=== PATIENT | female | born 1945 | race Caucasian/White ===

== ENCOUNTER 2019-08-20 12:52 | Inpatient (IN) | payer MEDICARE, MEDICAID ==
[2019-08-20] MEDS ORDERED: Sodium Chloride 0.9% 10 ML Syringe FLUSH PRN (13:25)
[2019-08-20] MEDS ORDERED: methylPREDNISolone Sodium Succinate 125 MG/2 ML SDV IV ONE (13:39)
[2019-08-20] MEDS ORDERED: Dextrose 5%-0.45% NaCl 1,000 ML IV SCH (13:45)
[2019-08-20] MEDS ORDERED: Azithromycin 250 MG Tab PO ONE (13:48)
[2019-08-20 15:06] LABS: ANION GAP 13.8 mmol/L (5-15)
[2019-08-20] MEDS: Sodium Chloride 0.9% 1,000 ML IV SCH (15:42)
[2019-08-20] MEDS: cefTRIAXone 1 GM Vial IVPUSH SCH (15:45)
[2019-08-20] MEDS: Albuterol/Ipratropium 3.0-0.5 MG/3 ML Neb Soln NEB SCH ×2 (17:18→22:32)
[2019-08-20] MEDS: Insulin Aspart 100 Units/ML 3 ML Pen SUBCUT SCH ×2 (17:50→21:17)
[2019-08-20] MEDS ORDERED: Metoprolol Tartrate 50 MG Tab PO ONE (21:56)
[2019-08-20] MEDS ORDERED: Insulin Glargine,Human Rec. Analog 100 Units/ML 3 ML Pen SUBCUT ONE (22:00)
[2019-08-20] MEDS ORDERED: Clopidogrel 75 MG Tab PO ONE (22:00)
[2019-08-20] MEDS ORDERED: hydrALAZINE 10 MG Tab PO ONE (22:00)
[2019-08-21] MEDS: Sodium Chloride 0.9% 1,000 ML IV SCH (04:52)
[2019-08-21] MEDS: Albuterol/Ipratropium 3.0-0.5 MG/3 ML Neb Soln NEB SCH ×4 (04:55→22:42)
[2019-08-21] MEDS: Insulin Aspart 100 Units/ML 3 ML Pen SUBCUT SCH ×4 (08:11→21:29)
[2019-08-21 08:20] LABS: ANION GAP 18.7 mmol/L (5-15)
[2019-08-21] MEDS: Azithromycin 250 MG Tab PO SCH (09:28)
[2019-08-21] MEDS ORDERED: Acetaminophen 325 MG Tab PO PRN (11:33)
--- NOTE | 2019-08-21 11:41 | PCM.PN ---
- General Info Date of Service: 08/21/19 Functional Status: Reports: Pain Controlled, Tolerating Diet, Urinating, New Symptoms (Left ear pain/plugging), Incentive Spirometry. Denies: Ambulating - Review of Systems General: Reports: Chills (Sweats chills middle the night), Night Sweats. Denies : Fever, Weakness, Fatigue, Malaise HEENT: Reports: Ear Pain, Sore Throat. Denies: Sinus Congestion Pulmonary: Reports: Cough. Denies: Shortness of Breath, Sputum (Thick mucus cannot seem to bring it up) Cardiovascular: Reports: Dyspnea on Exertion. Denies: Chest Pain, Palpitations , Orthopnea, PND, Edema, Lightheadedness Gastrointestinal: Reports: No Symptoms Genitourinary: Reports: No Symptoms Musculoskeletal: Reports: No Symptoms Skin: Reports: No Symptoms Neurological: Denies: Confusion Psychiatric: Reports: No Symptoms - Patient Data Vitals - Most Recent: Last Vital Signs Temp 97.3 F 08/21/19 06:42 Pulse 70 08/21/19 06:42 Resp 20 08/21/19 06:42 BP 139/57 L 08/21/19 06:42 Pulse Ox 94 L 08/21/19 06:42 Weight - Most Recent: 218 lb 8 oz I&O - Last 24 Hours: Intake & Output 08/20/19 08/21/19 08/21/19 22:59 06:59 14:59 Intake Total 1310 645 Output Total 0 Balance 1310 645 Lab Results Last 24 Hours: Laboratory Results - last 24 hr 08/20/19 08/20/19 08/20/19 Range/Units 05:40 14:40 14:40 WBC (5.00-10.00) 10^3/uL RBC (3.80-5.50) 10^6/uL Hgb (12.0-16.0) g/dL Hct (37.0-47.0) % MCV (82.0-92.0) fL MCH (27.0-31.0) pg MCHC (32.0-36.0) g/dL RDW (11.5-14.5) % Plt Count (150-400) 10^3/uL MPV (7.4-10.4) fL Immature Gran % (Auto) (0.0-5.0) % Neut % (Auto) (50.0-70.0) % Lymph % (Auto) (20.0-40.0) % Boone % (Auto) (2.0-8.0) % Eos % (Auto) (1.0-3.0) % Baso % (Auto) (0.0-1.0) % Immature Gran # (Auto) (0.00-0.50) 10^3/uL Neut # (Auto) (2.50-7.00) 10^3/uL Lymph # (Auto) (1.00-4.00) 10^3/uL Boone # (Auto) (0.10-0.80) 10^3/uL Eos # (Auto) (0.10-0.30) 10^3/uL Baso # (Auto) (0.00-0.10) 10^3/uL Sodium 136 (136-145) mmol/L Potassium 3.7 (3.3-5.3) mmol/L Chloride 101 (98-115) mmol/L Carbon Dioxide 24.9 (21.0-32.0) mmol/L Anion Gap 13.8 (5-15) mmol/L BUN 32 H (6-25) mg/dL Creatinine 1.76 H (0.51-1.17) mg/dL Est Cr Clr Drug Dosing 21.84 mL/min Estimated GFR (MDRD) 28 mL/min Glucose 107 H (75 - 99) mg/dL POC Glucose (74-106) mg/dl Lactic Acid 1.3 2.1 H (0.4-2.0) mmol/L Calcium 8.9 (8.7-10.3) mg/dL Total Bilirubin 1.6 H (0.2-1.0) mg/dL AST 16 (15-37) U/L ALT 16 (12-78) U/L Alkaline Phosphatase 67 (46-116) IU/L Total Protein 7.4 (6.4-8.2) g/dL Albumin 3.70 (3.00-4.80) g/dL 08/20/19 08/20/19 08/20/19 Range/Units 14:42 17:53 20:58 WBC (5.00-10.00) 10^3/uL RBC (3.80-5.50) 10^6/uL Hgb (12.0-16.0) g/dL Hct (37.0-47.0) % MCV (82.0-92.0) fL MCH (27.0-31.0) pg MCHC (32.0-36.0) g/dL RDW (11.5-14.5) % Plt Count (150-400) 10^3/uL MPV (7.4-10.4) fL Immature Gran % (Auto) (0.0-5.0) % Neut % (Auto) (50.0-70.0) % Lymph % (Auto) (20.0-40.0) % Boone % (Auto) (2.0-8.0) % Eos % (Auto) (1.0-3.0) % Baso % (Auto) (0.0-1.0) % Immature Gran # (Auto) (0.00-0.50) 10^3/uL Neut # (Auto) (2.50-7.00) 10^3/uL Lymph # (Auto) (1.00-4.00) 10^3/uL Boone # (Auto) (0.10-0.80) 10^3/uL Eos # (Auto) (0.10-0.30) 10^3/uL Baso # (Auto) (0.00-0.10) 10^3/uL Sodium (136-145) mmol/L Potassium (3.3-5.3) mmol/L Chloride (98-115) mmol/L Carbon Dioxide (21.0-32.0) mmol/L Anion Gap (5-15) mmol/L BUN (6-25) mg/dL Creatinine (0.51-1.17) mg/dL Est Cr Clr Drug Dosing mL/min Estimated GFR (MDRD) mL/min Glucose (75 - 99) mg/dL POC Glucose 94 250 H 374 H (74-106) mg/dl Lactic Acid (0.4-2.0) mmol/L Calcium (8.7-10.3) mg/dL Total Bilirubin (0.2-1.0) mg/dL AST (15-37) U/L ALT (12-78) U/L Alkaline Phosphatase (46-116) IU/L Total Protein (6.4-8.2) g/dL Albumin (3.00-4.80) g/dL 08/21/19 08/21/19 08/21/19 Range/Units 06:26 07:10 07:10 WBC 7.17 (5.00-10.00) 10^3/uL RBC 3.22 L (3.80-5.50) 10^6/uL Hgb 10.5 L (12.0-16.0) g/dL Hct 31.4 L (37.0-47.0) % MCV 97.5 H (82.0-92.0) fL MCH 32.6 H (27.0-31.0) pg MCHC 33.4 (32.0-36.0) g/dL RDW 12.9 (11.5-14.5) % Plt Count 155 (150-400) 10^3/uL MPV 10.0 (7.4-10.4) fL Immature Gran % (Auto) 0.6 (0.0-5.0) % Neut % (Auto) 88.0 H (50.0-70.0) % Lymph % (Auto) 7.0 L (20.0-40.0) % Boone % (Auto) 4.3 (2.0-8.0) % Eos % (Auto) 0.0 L (1.0-3.0) % Baso % (Auto) 0.1 (0.0-1.0) % Immature Gran # (Auto) 0.04 (0.00-0.50) 10^3/uL Neut # (Auto) 6.31 (2.50-7.00) 10^3/uL Lymph # (Auto) 0.50 L (1.00-4.00) 10^3/uL Boone # (Auto) 0.31 (0.10-0.80) 10^3/uL Eos # (Auto) 0.00 L (0.10-0.30) 10^3/uL Baso # (Auto) 0.01 (0.00-0.10) 10^3/uL Sodium 140 (136-145) mmol/L Potassium 4.2 (3.3-5.3) mmol/L Chloride 102 (98-115) mmol/L Carbon Dioxide 23.5 (21.0-32.0) mmol/L Anion Gap 18.7 H (5-15) mmol/L BUN 42 H (6-25) mg/dL Creatinine 1.94 H (0.51-1.17) mg/dL Est Cr Clr Drug Dosing 19.82 mL/min Estimated GFR (MDRD) 25 mL/min Glucose 299 H (75 - 99) mg/dL POC Glucose 292 H (74-106) mg/dl Lactic Acid (0.4-2.0) mmol/L Calcium 7.7 L (8.7-10.3) mg/dL Total Bilirubin (0.2-1.0) mg/dL AST (15-37) U/L ALT (12-78) U/L Alkaline Phosphatase (46-116) IU/L Total Protein (6.4-8.2) g/dL Albumin (3.00-4.80) g/dL 08/21/19 Range/Units 07:10 WBC (5.00-10.00) 10^3/uL RBC (3.80-5.50) 10^6/uL Hgb (12.0-16.0) g/dL Hct (37.0-47.0) % MCV (82.0-92.0) fL MCH (27.0-31.0) pg MCHC (32.0-36.0) g/dL RDW (11.5-14.5) % Plt Count (150-400) 10^3/uL MPV (7.4-10.4) fL Immature Gran % (Auto) (0.0-5.0) % Neut % (Auto) (50.0-70.0) % Lymph % (Auto) (20.0-40.0) % Boone % (Auto) (2.0-8.0) % Eos % (Auto) (1.0-3.0) % Baso % (Auto) (0.0-1.0) % Immature Gran # (Auto) (0.00-0.50) 10^3/uL Neut # (Auto) (2.50-7.00) 10^3/uL Lymph # (Auto) (1.00-4.00) 10^3/uL Boone # (Auto) (0.10-0.80) 10^3/uL Eos # (Auto) (0.10-0.30) 10^3/uL Baso # (Auto) (0.00-0.10) 10^3/uL Sodium (136-145) mmol/L Potassium (3.3-5.3) mmol/L Chloride (98-115) mmol/L Carbon Dioxide (21.0-32.0) mmol/L Anion Gap (5-15) mmol/L BUN (6-25) mg/dL Creatinine (0.51-1.17) mg/dL Est Cr Clr Drug Dosing mL/min Estimated GFR (MDRD) mL/min Glucose (75 - 99) mg/dL POC Glucose (74-106) mg/dl Lactic Acid 1.1 (0.4-2.0) mmol/L Calcium (8.7-10.3) mg/dL Total Bilirubin (0.2-1.0) mg/dL AST (15-37) U/L ALT (12-78) U/L Alkaline Phosphatase (46-116) IU/L Total Protein (6.4-8.2) g/dL Albumin (3.00-4.80) g/dL Tito Results Last 24 Hours: Microbiology 08/20/19 14:20 Anaerobic Blood Culture - Final Blood - Venous Med Orders - Current: Current Medications Albuterol/Ipratropium (Duoneb 3.0-0.5 Mg/3 Ml) 3 ml NEB Q6HRRT [facility] Last Admin: 08/21/19 04:55 Dose: 3 ml Azithromycin (Zithromax) 250 mg PO DAILY [facility] Stop: 08/24/19 21:00 Last Admin: 08/21/19 09:28 Dose: 250 mg Ceftriaxone Sodium (Rocephin) 1 gm IVPUSH Q24H [facility] Last Admin: 08/20/19 15:45 Dose: 1 gm Sodium Chloride (Normal Saline) 1,000 mls @ 75 mls/hr IV ASDIRECTED [facility] Last Admin: 08/21/19 04:52 Dose: 75 mls/hr Insulin Aspart (Novolog) 0 unit SUBCUT WITHMEALSANDBED [facility]; Protocol Last Admin: 08/21/19 08:11 Dose: 6 units Sodium Chloride (Saline Flush) 10 ml FLUSH Q8HR PRN PRN Reason: keep vein open Discontinued Medications Azithromycin (Zithromax) 500 mg PO ONETIME ONE Stop: 08/20/19 13:49 Last Admin: 08/20/19 15:50 Dose: 500 mg Clopidogrel Bisulfate (Plavix) 75 mg PO ONETIME ONE Stop: 08/20/19 22:01 Last Admin: 08/20/19 22:29 Dose: 75 mg Hydralazine HCl (Apresoline) 10 mg PO ONETIME ONE Stop: 08/20/19 22:01 Last Admin: 08/20/19 22:29 Dose: 10 mg Dextrose/Sodium Chloride (Dextrose 5%-1/2 Ns) 1,000 mls @ 75 mls/hr IV ASDIRECTED GUILLERMINA Insulin Glargine (Lantus Solostar) 15 units SUBCUT ONETIME ONE Stop: 08/20/19 22:01 Last Admin: 08/20/19 22:30 Dose: 15 units Methylprednisolone Sodium Succinate (Solu-Medrol) 40 mg IV ONETIME ONE Stop: 08/20/19 13:40 Last Admin: 08/20/19 15:47 Dose: 40 mg Metoprolol Tartrate (Lopressor) 50 mg PO ONETIME ONE Stop: 08/20/19 21:57 Last Admin: 08/20/19 22:29 Dose: 50 mg - Exam Quality Assessment: Supplemental Oxygen General: Alert, Oriented, Cooperative, No Acute Distress Lungs: Clear to Auscultation, Normal Respiratory Effort, Other Cardiovascular: Regular Rate, Regular Rhythm GI/Abdominal Exam: Normal Bowel Sounds, Soft (Female) Exam: Deferred Extremities: No Pedal Edema Skin: Dry Psy/Mental Status: Alert, Normal Affect, Normal Mood Sepsis Event Note - Evaluation Sepsis Screening Result: No Definite Risk - Focused Exam Vital Signs: Vital Signs Temp Pulse Resp BP Pulse Ox Pulse Ox 08/21/19 06:42 97.3 F 70 20 139/57 L 94 L 08/21/19 05:09 72 96 08/21/19 03:00 96.9 F 68 20 136/60 94 L Date Exam was Performed: 08/21/19 Time Exam was Performed: 11:15 - Problem List Review Problem List Initiated/Reviewed/Updated: Yes - Plan Plan:: History Summary 73-year-old pleasant female was admitted by [facility] due to right lower lobe pneumonia. [facility] stating she just did not feel right if she was quite sick at home with fevers approximately the past 2 days along with productive cough shortness of breath with limited activity. Patient states that she has been having shortness of breath more on exertion over the past few years that she contributes to her smoking history. Patient provider said patient had significant wheezing and shortness of breath while in clinic Pertinent prehospital work-up Temperature 100.8 SPO2 95% WBC, 11.3 Neutrophils 84% Negative influenza A/B CxR flattened diaphragms opacity right lung base Primary hospital problems --Pneumonia, RLL, CAP, likely bacterial --T2DM, hyperglycemia 2/2 glucocorticoid steroids, most recent A1c tightly controlled at 5.7%., Insulin home regimen, aspart 10 units every morning 12 units 12 and 1800, Tresiba 50 units bedtime. We will make adjustments to cover her steroid-induced hyperglycemia Chronic/stable problems Hypertension, no adjustment in home meds Hyperlipidemia CKD, stage III, above baseline of 1.4-1.6 History of CVA Obesity, morbid, comorbid Gout, active flareup Osteoarthritis, Disposition/overall plan Patient meets criteria for inpatient stay Continue with p.o. macrolide along with ceftriaxone Irrigate left ear Procalcitonin Saline lock IV fluids Encourage p.o. intake A1c today to adjust insulin levels if needed Patient possibility of discharge in a.m.
[2019-08-21 11:53] LABS: HEMOGLOBIN A1C 5.5 % (4.3-5.7)
[2019-08-21] MEDS: Insulin Glargine,Human Rec. Analog 100 Units/ML 3 ML Pen SUBCUT SCH ×2 (12:09→21:26)
[2019-08-21] MEDS: Metoprolol Tartrate 50 MG Tab PO SCH ×2 (12:43→21:24)
[2019-08-21] MEDS: cefTRIAXone 1 GM Vial IVPUSH SCH (14:40)
[2019-08-21] MEDS: hydrALAZINE 10 MG Tab PO SCH ×2 (14:41→21:25)
[2019-08-21] MEDS ORDERED: Clopidogrel 75 MG Tab PO SCH (21:00)
[2019-08-21] MEDS ORDERED: Simvastatin 20 MG Tab PO SCH (21:00)
[2019-08-22] MEDS: Albuterol/Ipratropium 3.0-0.5 MG/3 ML Neb Soln NEB SCH ×2 (04:43→11:05)
[2019-08-22 08:18] LABS: ANION GAP 17.2 mmol/L (5-15)
[2019-08-22] MEDS: Metoprolol Tartrate 50 MG Tab PO SCH (08:20)
[2019-08-22] MEDS: hydrALAZINE 10 MG Tab PO SCH (08:20)
[2019-08-22] MEDS: Azithromycin 250 MG Tab PO SCH (08:20)
[2019-08-22] MEDS: Insulin Glargine,Human Rec. Analog 100 Units/ML 3 ML Pen SUBCUT SCH (08:21)
[2019-08-22 08:23] VITALS: BP 180/74; PULSE 74
[2019-08-22] MEDS ORDERED: Cholecalciferol (Vitamin D3) 25 MCG Tab PO SCH (09:00)
[2019-08-22] MEDS ORDERED: Insulin Aspart 100 Units/ML 3 ML Pen SUBCUT SCH (09:00)
--- NOTE | 2019-08-22 10:39 | PCM.DCSUM1 ---
Discharge Summary - Discharge Data Discharge Date: 08/22/19 Discharge Disposition: Home, Self-Care 01 Condition: Good - Referral to Home Health Primary Care Physician: Denita Angel MD - Patient Instructions Diet: Diabetic Diet Activity: As Tolerated Showering/Bathing: May Shower Notify Provider of: Fever (101 F or higher, increased shortness of breath, chest pain) Other/Special Instructions: Please monitor your blood sugars closely as when you are sick they can be fluctuant. If the fasting glucose is less than 110 prior to eating, please cut the normal novolog dose in half. - Discharge Plan *PRESCRIPTION DRUG MONITORING PROGRAM REVIEWED*: Not Applicable *COPY OF PRESCRIPTION DRUG MONITORING REPORT IN PATIENT LENKA: Not Applicable Prescriptions/Med Rec: RX: Albuterol/Ipratropium [DuoNeb 3.0-0.5 MG/3 ML] 3 ml NEB Q6HRRT 5 Days #1 box Amoxicillin/Clavulanate K [Augmentin 500-125 MG] 1 tab PO Q12H 3 Days #6 tab RX: Azithromycin [Zithromax] 250 mg PO DAILY 2 Days #2 tablet Home Medications: Home Meds Cholecalciferol (Vitamin D3) [Vitamin D] 2,000 unit PO DAILY 01/09/15 [Rx] RX: Simvastatin [Zocor] 20 mg PO BEDTIME tablet 01/09/15 [Rx] RX: Metoprolol Tartrate [Lopressor] 50 mg PO BID 08/07/19 [History] RX: Acetaminophen [Tylenol] 650 mg PO TID PRN 08/20/19 [History] RX: Acetaminophen/Diphenhydramine [Tylenol Pm Ex-Strength Caplet] 1 each PO BEDTIME PRN 08/20/19 [History] RX: Clopidogrel [Plavix] 75 mg PO BEDTIME 08/20/19 [History] RX: Furosemide [Lasix] 10 mg PO DAILY 08/20/19 [History] RX: Insulin Aspart [NovoLOG] 10 unit SUBCUT QAM 08/20/19 [History] RX: Insulin Aspart [NovoLOG] 12 units SQ 1200,1800 08/20/19 [History] RX: Insulin Degludec [Tresiba] 50 unit SQ BEDTIME 08/20/19 [History] RX: Lisinopril [Zestril] 5 mg PO DAILY 08/20/19 [History] RX: hydrALAZINE [Apresoline] 10 mg PO TID 08/20/19 [History] Amoxicillin/Clavulanate K [Augmentin 500-125 MG] 1 tab PO Q12H 3 Days #6 tab 08/10 [Rx] RX: Albuterol/Ipratropium [DuoNeb 3.0-0.5 MG/3 ML] 3 ml NEB Q6HRRT 5 Days #1 box 08/22/19 [Rx] RX: Azithromycin [Zithromax] 250 mg PO DAILY 2 Days #2 tablet 08/22/19 [Rx] Referrals: Henry Colon PA-C [Physician [employer] Line Up Person] - 08/25/19 (Please call the [facility] during normal business hours to schedule your follow-up appointment. ) - Discharge Summary/Plan Comment DC Time >30 min.: Yes Discharge Summary/Plan Comment: Date of admission: 08/20/19 Date of discharge: 08/22/19 Admitting diagnosis: Primary: CAP RLL pneumonia (POA) Secondary: COPD, T2DM, HTN, HLD, CKD stage III, History of CVA, Morbid obesity, Gout, OA Final diagnosis: Primary: CAP RLL pneumonia (POA) Secondary: COPD, T2DM, HTN, HLD, CKD stage III, History of CVA, Morbid obesity, Gout, OA Procedures performed: None Complications: None Brief History: This 73 yo female presented to an [facility] d/t fevers, productive cough and shortness of breath. She was found to have WBC 11.3 with neutrophilia, negative influenza A/B swab, and a CXR which noted flattened diaphragm with right lung base opacity. She was subsequently admitted for further treatment and monitoring. Hospital Course: The patient's hospital course progressed as expected. She was given oral zithromax and IV rocephin. She received gentle IV fluids. She was given DuoNebs. Blood cultures x 2 were negative preliminarily. She remained afebrile and hemodynamically stable. She required oxygen of 1-3 liters per nasal cannula for at least 24 hours with subsequent resolution. She was not able to produce a sputum sample. Her glucose levels were monitored and corrected with sliding scale novolog. Her creatinine was elevated up to 1.9, which her baseline is typically 1.4-1.6. Discharge labs: WBC 8.9 with neutrophils 78.4% Hgb 11.5 Creatinine 1.63 Procalcitonin 0.21 (H) A1c 5.5 New medications at discharge: -Zithromax 250 mg po daily x 2 days -Augmentin 500 mg po BID x 3 days -DuoNebs QID x 5 days, then QID PRN Changes to home medications on discharge: None Regular home medications on discharge: -Tylenol PM 1 tab po at HS PRN -Novolog 05/02/12 units SQ with meals -Tylenol 650 mg po TID PRN -Plavix 75 mg po at HS -Vitamin D3 2000 units po daily -Simvastatin 20 mg po at HS -Tresiba 50 units SQ at HS -Hydralazine 10 mg po TID -Lopressor 50 mg po BID -Lasix 10 mg po daily Condition, Treatment, & Final Disposition: The patient is in stable condition at the time of discharge. She will follow-up with Henry Colon PA-C at the [facility] next week. Considerations at follow-up include recheck of kidney function, review of blood sugars as given age she doesn't need as tight of glycemic control (see above A1c), and consideration for maintenance inhaled medications for her underlying COPD. - General Info Date of Service: 08/22/19 Functional Status: Reports: Pain Controlled, Tolerating Diet, Ambulating, Urinating. Denies: New Symptoms - Review of Systems General: Denies: Fever, Chills HEENT: Reports: Sinus Congestion. Denies: Headaches Pulmonary: Reports: Cough, Wheezing. Denies: Shortness of Breath, Sputum Cardiovascular: Reports: Dyspnea on Exertion. Denies: Chest Pain, Edema, Lightheadedness Gastrointestinal: Reports: No Symptoms Genitourinary: Reports: No Symptoms Neurological: Denies: Dizziness, Headache Psychiatric: Reports: No Symptoms - Patient Data Vitals - Most Recent: Last Vital Signs Temp 97.0 F 08/22/19 07:00 Pulse 74 08/22/19 08:20 Resp 20 08/22/19 07:00 BP 180/74 H 08/22/19 08:20 Pulse Ox 91 L 08/22/19 07:00 Weight - Most Recent: 218 lb 8 oz I&O - Last 24 hours: Intake & Output 08/21/19 08/22/1920 22:59 06:59 14:59 Intake Total 500 200 Output Total 550 700 Balance -50 -500 Lab Results - Last 24 hrs: Laboratory Results - last 24 hr 08/21/19 08/21/19 08/21/19 Range/Units 07:10 07:10 11:46 WBC (5.00-10.00) 10^3/uL RBC (3.80-5.50) 10^6/uL Hgb (12.0-16.0) g/dL Hct (37.0-47.0) % MCV (82.0-92.0) fL MCH (27.0-31.0) pg MCHC (32.0-36.0) g/dL RDW (11.5-14.5) % Plt Count (150-400) 10^3/uL MPV (7.4-10.4) fL Immature Gran % (Auto) (0.0-5.0) % Neut % (Auto) (50.0-70.0) % Lymph % (Auto) (20.0-40.0) % Heard % (Auto) (2.0-8.0) % Eos % (Auto) (1.0-3.0) % Baso % (Auto) (0.0-1.0) % Immature Gran # (Auto) (0.00-0.50) 10^3/uL Neut # (Auto) (2.50-7.00) 10^3/uL Lymph # (Auto) (1.00-4.00) 10^3/uL Heard # (Auto) (0.10-0.80) 10^3/uL Eos # (Auto) (0.10-0.30) 10^3/uL Baso # (Auto) (0.00-0.10) 10^3/uL Sodium (136-145) mmol/L Potassium (3.3-5.3) mmol/L Chloride (98-115) mmol/L Carbon Dioxide (21.0-32.0) mmol/L Anion Gap (5-15) mmol/L BUN (6-25) mg/dL Creatinine (0.51-1.17) mg/dL Est Cr Clr Drug Dosing mL/min Estimated GFR (MDRD) mL/min Glucose (75 - 99) mg/dL POC Glucose 327 H (74-106) mg/dl Hemoglobin A1c 5.5 (4.3-5.7) % Calcium (8.7-10.3) mg/dL Procalcitonin 0.21 H (<0.10) ng/mL 08/21/19 08/21/19 08/22/19 Range/Units 17:33 21:21 06:45 WBC 8.97 (5.00-10.00) 10^3/uL RBC 3.60 L (3.80-5.50) 10^6/uL Hgb 11.5 L (12.0-16.0) g/dL Hct 35.2 L (37.0-47.0) % MCV 97.8 H (82.0-92.0) fL MCH 31.9 H (27.0-31.0) pg MCHC 32.7 (32.0-36.0) g/dL RDW 13.0 (11.5-14.5) % Plt Count 179 (150-400) 10^3/uL MPV 9.4 (7.4-10.4) fL Immature Gran % (Auto) 0.6 (0.0-5.0) % Neut % (Auto) 78.4 H (50.0-70.0) % Lymph % (Auto) 13.6 L (20.0-40.0) % Heard % (Auto) 6.2 (2.0-8.0) % Eos % (Auto) 0.8 L (1.0-3.0) % Baso % (Auto) 0.4 (0.0-1.0) % Immature Gran # (Auto) 0.05 (0.00-0.50) 10^3/uL Neut # (Auto) 7.03 H (2.50-7.00) 10^3/uL Lymph # (Auto) 1.22 (1.00-4.00) 10^3/uL Heard # (Auto) 0.56 (0.10-0.80) 10^3/uL Eos # (Auto) 0.07 L (0.10-0.30) 10^3/uL Baso # (Auto) 0.04 (0.00-0.10) 10^3/uL Sodium (136-145) mmol/L Potassium (3.3-5.3) mmol/L Chloride (98-115) mmol/L Carbon Dioxide (21.0-32.0) mmol/L Anion Gap (5-15) mmol/L BUN (6-25) mg/dL Creatinine (0.51-1.17) mg/dL Est Cr Clr Drug Dosing mL/min Estimated GFR (MDRD) mL/min Glucose (75 - 99) mg/dL POC Glucose 324 H 215 H (74-106) mg/dl Hemoglobin A1c (4.3-5.7) % Calcium (8.7-10.3) mg/dL Procalcitonin (<0.10) ng/mL 08/22/19 08/22/19 Range/Units 06:45 07:54 WBC (5.00-10.00) 10^3/uL RBC (3.80-5.50) 10^6/uL Hgb (12.0-16.0) g/dL Hct (37.0-47.0) % MCV (82.0-92.0) fL MCH (27.0-31.0) pg MCHC (32.0-36.0) g/dL RDW (11.5-14.5) % Plt Count (150-400) 10^3/uL MPV (7.4-10.4) fL Immature Gran % (Auto) (0.0-5.0) % Neut % (Auto) (50.0-70.0) % Lymph % (Auto) (20.0-40.0) % Heard % (Auto) (2.0-8.0) % Eos % (Auto) (1.0-3.0) % Baso % (Auto) (0.0-1.0) % Immature Gran # (Auto) (0.00-0.50) 10^3/uL Neut # (Auto) (2.50-7.00) 10^3/uL Lymph # (Auto) (1.00-4.00) 10^3/uL Heard # (Auto) (0.10-0.80) 10^3/uL Eos # (Auto) (0.10-0.30) 10^3/uL Baso # (Auto) (0.00-0.10) 10^3/uL Sodium 140 (136-145) mmol/L Potassium 3.7 (3.3-5.3) mmol/L Chloride 103 (98-115) mmol/L Carbon Dioxide 23.5 (21.0-32.0) mmol/L Anion Gap 17.2 H (5-15) mmol/L BUN 41 H (6-25) mg/dL Creatinine 1.63 H (0.51-1.17) mg/dL Est Cr Clr Drug Dosing 23.58 mL/min Estimated GFR (MDRD) 31 mL/min Glucose 117 H (75 - 99) mg/dL POC Glucose 114 H (74-106) mg/dl Hemoglobin A1c (4.3-5.7) % Calcium 8.7 (8.7-10.3) mg/dL Procalcitonin (<0.10) ng/mL JEFFERY Results - Last 24 hrs: Microbiology 08/20/19 14:40 Aerobic Blood Culture - Preliminary Blood - Venous - Lab Draw NO GROWTH AFTER 1 DAY Anaerobic Blood Culture - Preliminary NO GROWTH AFTER 1 DAY 08/20/19 14:20 Aerobic Blood Culture - Preliminary Blood - Venous NO GROWTH AFTER 1 DAY Anaerobic Blood Culture - Final Med Orders - Current: Current Medications Acetaminophen (Tylenol) 650 mg PO TID PRN PRN Reason: Pain Last Admin: 08/21/19 21:40 Dose: 650 mg Albuterol/Ipratropium (Duoneb 3.0-0.5 Mg/3 Ml) 3 ml NEB Q6HRRT [facility] Last Admin: 08/22/19 04:43 Dose: 3 ml Azithromycin (Zithromax) 250 mg PO DAILY [facility] Stop: 08/24/19 21:00 Last Admin: 08/22/19 08:20 Dose: 250 mg Ceftriaxone Sodium (Rocephin) 1 gm IVPUSH Q24H [facility] Last Admin: 08/21/19 14:40 Dose: 1 gm Cholecalciferol (Vitamin D3) 50 mcg PO DAILY [facility] Last Admin: 08/22/19 08:21 Dose: 50 mcg Clopidogrel Bisulfate (Plavix) 75 mg PO BEDTIME [facility] Last Admin: 08/21/19 21:24 Dose: 75 mg Hydralazine HCl (Apresoline) 10 mg PO TID [facility] Last Admin: 08/22/19 08:20 Dose: 10 mg Insulin Aspart (Novolog) 0 unit SUBCUT WITHMEALSANDBED [facility]; Protocol Last Admin: 08/21/19 21:29 Dose: 4 units Insulin Aspart (Novolog) 10 unit SUBCUT QAM [facility] Last Admin: 08/22/19 08:22 Dose: 10 units Insulin Glargine (Lantus Solostar) 15 units SUBCUT BID [facility] Last Admin: 08/22/19 08:21 Dose: 15 units Metoprolol Tartrate (Lopressor) 50 mg PO BID [facility] Last Admin: 08/22/19 08:20 Dose: 50 mg Simvastatin (Zocor) 20 mg PO BEDTIME [facility] Last Admin: 08/21/19 21:24 Dose: 20 mg Sodium Chloride (Saline Flush) 10 ml FLUSH Q8HR PRN PRN Reason: keep vein open Last Admin: 08/21/19 21:44 Dose: 10 ml Discontinued Medications Azithromycin (Zithromax) 500 mg PO ONETIME ONE Stop: 08/20/19 13:49 Last Admin: 08/20/19 15:50 Dose: 500 mg Clopidogrel Bisulfate (Plavix) 75 mg PO ONETIME ONE Stop: 08/20/19 22:01 Last Admin: 08/20/19 22:29 Dose: 75 mg Hydralazine HCl (Apresoline) 10 mg PO ONETIME ONE Stop: 08/20/19 22:01 Last Admin: 08/20/19 22:29 Dose: 10 mg Dextrose/Sodium Chloride (Dextrose 5%-1/2 Ns) 1,000 mls @ 75 mls/hr IV ASDIRECTED [facility] Sodium Chloride (Normal Saline) 1,000 mls @ 75 mls/hr IV ASDIRECTED [facility] Last Admin: 08/21/19 04:52 Dose: 75 mls/hr Insulin Glargine (Lantus Solostar) 15 units SUBCUT ONETIME ONE Stop: 08/20/19 22:01 Last Admin: 08/20/19 22:30 Dose: 15 units Methylprednisolone Sodium Succinate (Solu-Medrol) 40 mg IV ONETIME ONE Stop: 08/20/19 13:40 Last Admin: 08/20/19 15:47 Dose: 40 mg Metoprolol Tartrate (Lopressor) 50 mg PO ONETIME ONE Stop: 08/20/19 21:57 Last Admin: 08/20/19 22:29 Dose: 50 mg - Exam Quality Assessment: Reports: DVT Prophylaxis (Cordell fierro). Denies: Supplemental Oxygen, Urine Catheter General: Reports: Alert, Oriented, Cooperative, No Acute Distress Lungs: Reports: Normal Respiratory Effort, Decreased Breath Sounds (bilateral lower lobes), Wheezing (expiratory to bilateral upper lobes). Denies: Crackles , Rhonchi Cardiovascular: Reports: Regular Rate, Regular Rhythm, No Murmurs Extremities: No Pedal Edema Skin: Reports: Warm, Dry Neurological: Reports: Normal Speech Psy/Mental Status: Reports: Alert, Normal Affect, Normal Mood
[2019-08-22] MEDS: Insulin Aspart 100 Units/ML 3 ML Pen SUBCUT SCH ×2 (10:52→12:05)
== END 2019-08-22 14:00 | disposition home or self-care (01) | DRG 194 ==
LOC: KA.MS 13:37
PROVIDERS: ADMIT Physician Assistant; ATTEND Family Medicine
DX: J15.9 Unspecified bacterial pneumonia (principal); J44.0 Chronic obstructive pulmonary disease with (acute) lower respiratory infection; E11.65 Type 2 diabetes mellitus with hyperglycemia; T38.0X5A Adverse effect of glucocorticoids and synthetic analogues, initial encounter; I12.9 Hypertensive chronic kidney disease with stage 1 through stage 4 chronic kidney disease, or unspecified chronic kidney disease; N18.3 Chronic kidney disease, stage 3 (moderate); E11.22 Type 2 diabetes mellitus with diabetic chronic kidney disease; E66.01 Morbid (severe) obesity due to excess calories; M19.90 Unspecified osteoarthritis, unspecified site; M10.9 Gout, unspecified; Z86.73 Personal history of transient ischemic attack (TIA), and cerebral infarction without residual deficits; Z88.2 Allergy status to sulfonamides; Z88.8 Allergy status to other drugs, medicaments and biological substances; Z87.891 Personal history of nicotine dependence; Z79.899 Other long term (current) drug therapy
CPT/HCPCS: 36415; 80048; 80053; 82962; 83036; 83605; 84145; 85025; 87040; 94640; A9270-GY; J0696; J1815-GY; J2930; J7030; J7620-GY